=== PATIENT | female | born 1985 | race Caucasian/White ===

== ENCOUNTER 2017-11-27 18:09 | Emergency (ER) | payer BC, OTHER ==
[2017-11-27 18:51] VITALS: BP 118/82
[2017-11-27] MEDS ORDERED: Meclizine TAB* 12.5 MG PO ONE (19:11)
[2017-11-27] MEDS ORDERED: Ondansetron ODT TAB* 4 MG PO ONE (19:11)
--- NOTE | 2017-11-27 19:22 | UC ---
Gina Pete Julia, scribed for Naveed Zuleta MD on 11/27/17 at 1910 . Dizzy HPI HPI Summary: This patient is a 32 year old F presenting to [facility] accompanied by her mother with a chief complaint of spinning dizziness for past four days. Patient reports nausea, decreased appetite, headache, vomiting, post nasal drip, and heaviness in extremities. Patient denies fever, cough, ear or sinus pain, vision changes, diarrhea, and facial numbness. The patient rates the dizziness 8 /10 in severity. Symptoms aggravated by changing position, closing eyes and stagnant gaze. She states she has to walker slower secondary to dizziness. Patient is currently nursing. She states she had 2 panic attacks on Monday. - History Of Current Complaint Chief Complaint: UCDizziness Stated Complaint: NAUSEA, DIZZINESS Hx Obtained From: Patient Hx Last Menstrual Period: 11/23/17 ?: No Onset/Duration: Lasting Days Timing: Constant Pain Intensity: 8 Pain Scale Used: 0-10 Numeric Character: Room Spinning Aggravating Factor(s): Supine To Erect - closing eyes and stagnant gaze Associated Signs And Symptoms: Positive: Nausea, Vomiting, Decreased Oral Intake - Allergies/Home Medications Allergies/Adverse Reactions: Allergies Allergy/AdvReac Type Severity Reaction Status Date / Time No Known Allergies Allergy Verified 11/27/17 18:41 Home Medications: Home Medications Iron 18 mg PO DAILY 11/27/17 [History Confirmed 11/27/17] PMH/Surg Hx/FS Hx/Imm Hx - Additional Past Medical History Additional PMH: History of panic attacks with no formal diagnosis of anxiety. Pt is also has hx of anemia. - Surgical History Surgical History: Yes Surgery Procedure, Year, and Place: C- section 2008 - Family History Known Family History: Negative: Cardiac Disease, Diabetes - Social History Alcohol Use: Occasionally Substance Use Type: None Smoking Status (MU): Never Smoked Tobacco Have You Smoked in the Last Year: No - Immunization History Most Recent Influenza Vaccination: fall 2013 Most Recent Tetanus Shot: 06/11/2015 Most Recent Pneumonia Vaccination: never Review of Systems Constitutional: Negative - fever ENT: Negative - ear or sinus pain, Other - post nasal drip Gastrointestinal: Vomiting, Diarrhea - negative, Nausea - with decreased appetite Neurological: Negative - vision changes or facial numbness All Other Systems Reviewed And Are Negative: Yes Physical Exam Triage Information Reviewed: Yes Vital Signs: Initial Vital Signs Temp 98.8 F 11/27/17 18:43 Pulse 95 11/27/17 18:43 Resp 18 11/27/17 18:43 BP 118/82 11/27/17 18:43 Pulse Ox 99 11/27/17 18:43 Vital Signs Reviewed: Yes - Additional Comments Appearance: Well-appearing, Well-nourished Skin: Warm ENT: bulging left TM Respiratory: Clear to auscultation Cardiovascular: Normal S1, S2. No murmurs. Normal distal pulses in tibial and radial bilaterally. Abdomen: Soft, nontender, no masses Musculoskeletal: Normal, Strength/ROM Intact Neurological: Normal, A&Ox3, cranial nerves 2-12 intact, normal coordination, normal gait Psychiatric: Normal General: No acute distress Dizzy Course/Dx - Course Course Of Treatment: feels better here in ED, instructed to fu with pmd. no focal neuro def, pt and family agrees to and undertsnads dc instructions. - Differential Dx/Diagnosis Provider Diagnoses: dizziness Discharge - Discharge Plan Condition: Stable Disposition: HOME Prescriptions: Meclizine TAB* [Antivert 12.5 TAB*] 25 mg PO BID PRN #12 tab PRN Reason: Dizziness Ondansetron TAB* [Zofran 4 MG Tab*] 4 mg PO BID PRN #12 tab PRN Reason: Nausea Patient Education Materials: Benign Paroxysmal Positional Vertigo (ED) Referrals: Marcela Wu MD [Primary Care Provider] - Additional Instructions: PLEASE TAKE MEDICATIONS DIRECTED PLEASE KEEP YOURSELF WELL HYDRATED WITH SMALL AMOUNTS OF FLUID MORE FREQUENTLY THROUGHOUT THE DAY PLEASE SEEK MEDICAL ATTENTION IMMEDIATELY IF YOU HAVE ANY WORSENING OR CONCERNING SYMPTOMS PLEASE MAKE AN APPOINTMENT TO BE SEEN BY YOUR PRIMARY CARE DOCTOR WITHIN 1 WEEK The documentation as recorded by the Gina garcia Julia accurately reflects the service I personally performed and the decisions made by me, Naveed Zuleta MD.
== END 2017-11-27 19:28 | disposition home or self-care (01) ==
LOC: UCEAST 18:09
DX: R42 Dizziness and giddiness (principal); R11.2 Nausea with vomiting, unspecified; R51 Headache
CPT/HCPCS: 99212; A9270-GY; G0463

== ENCOUNTER 2017-12-14 17:58 | Emergency (ER) | payer BC | END 2017-12-14 18:35 | disposition left against medical advice (07) | LOC: UCEAST 17:58 | DX: Z77.29 Contact with and (suspected) exposure to other hazardous substances (principal); Z53.21 Procedure and treatment not carried out due to patient leaving prior to being seen by health care provider ==

== ENCOUNTER 2017-12-14 18:29 | Emergency (ER) | payer BC ==
--- NOTE | 2017-12-14 20:07 | ED ---
Headache - HPI Summary HPI Summary: 32F presents with possible carbon monoxide poisoning. She states the CO detector went off in her house today. She states she was tested by the fire department and it was little elevated. She states it has been 3 hours since exposure. She uses a fireplace which they are transferring over to a different one tomorrow. She has a place to stay tonight. She states she had a headache and some lightheadedness that has resolved since then. She has no medical conditions. - History Of Current Complaint Chief Complaint: EDGeneral Stated Complaint: POSS CO POISONING Time Seen by Provider: 12/14/17 19:05 Hx Last Menstrual Period: 11/23/17 - Allergies/Home Medications Allergies/Adverse Reactions: Allergies Allergy/AdvReac Type Severity Reaction Status Date / Time No Known Allergies Allergy Verified 11/27/17 18:41 PMH/Surg Hx/FS Hx/Imm Hx Endocrine/Hematology History: Denies: Hx Anticoagulant Therapy Cardiovascular History: Denies: Hx Hypertension - Surgical History Surgery Procedure, Year, and Place: C- section 2009 Infectious Disease History: No Infectious Disease History: Denies: Traveled Outside the [place] in Last 30 Days - Family History Known Family History: Positive: Respiratory Disease Negative: Cardiac Disease, Diabetes - Social History Alcohol Use: Occasionally Substance Use Type: Reports: None Smoking Status (MU): Never Smoked Tobacco Have You Smoked in the Last Year: No Review of Systems Negative: Fever Negative: Chest Pain Positive: Other - co exposure. Negative: Shortness Of Breath Positive: Headache All Other Systems Reviewed And Are Negative: Yes Physical Exam Triage Information Reviewed: Yes Vital Signs On Initial Exam: Initial Vitals Temp Pulse Resp BP Pulse Ox 97.7 F 85 17 120/70 99 12/14/17 18:57 12/14/17 18:57 12/14/17 18:57 12/14/17 18:57 12/14/17 18:57 Vital Signs Reviewed: Yes Appearance: Positive: Well-Appearing Skin: Positive: Warm, Dry Head/Face: Positive: Normal Head/Face Inspection Eyes: Positive: Normal, Conjunctiva Clear Respiratory/Lung Sounds: Positive: Clear to Auscultation, Breath Sounds Present Cardiovascular: Positive: Normal, RRR Abdomen Description: Positive: Nontender, Soft Bowel Sounds: Positive: Present Musculoskeletal: Positive: Normal Neurological: Positive: Normal Psychiatric: Positive: Normal Diagnostics - Vital Signs Vital Signs Temp Pulse Resp BP Pulse Ox 02/22/18 18:57 97.7 F 85 17 120/70 99 - Laboratory Lab Results: Lab Results 12/14/17 Range/Units 19:50 Carbon Monoxide Screen < 4 (<4.0) % Lab Statement: Any lab studies that have been ordered have been reviewed, and results considered in the medical decision making process. Headache Course/Dx - Course Course Of Treatment: 32F presents with possible carbon monoxide poisoning. She states the CO detector went off in her house today. She states she was tested by the fire department and it was little elevated. She states it has been 3 hours since exposure. She uses a fireplace which they are transferring over to a different one tomorrow. She has a place to stay tonight. She states she had a headache and some lightheadedness that has resolved since then. She has no medical conditions. On exam lungs clear to auscultation. CO level less than 4. No treatment needed at this time. Patient understands and agrees with plan. - Diagnoses Differential Diagnosis/HQI/PQRI: Other - co exposure Provider Diagnoses: Carbon monoxide exposure Discharge - Discharge Plan Condition: Good Disposition: HOME Patient Education Materials: Carbon Monoxide Poisoning (ED) Referrals: Marcela Wu MD [Primary Care Provider] - Additional Instructions: Return to ED if develop any new or worsening symptoms
[2017-12-14 20:16] VITALS: BP 120/72
== END 2017-12-14 20:14 | disposition home or self-care (01) ==
LOC: ED 18:29
DX: T58.8X1A Toxic effect of carbon monoxide from other source, accidental (unintentional), initial encounter (principal)
CPT/HCPCS: 36415; 82375; 99282

== ENCOUNTER 2019-02-04 11:59 | Inpatient (IN) | payer BC ==
[2019-02-04] MEDS ORDERED: Buffered Lidocaine 1% SYRIN* 1 ML/SYRINGE INTRADERM ONE (12:32)
[2019-02-04] MEDS ORDERED: Lactated Ringers 1000 ML Bag* 1,000 ML IV ONE ×2 (12:32→18:45)
--- NOTE | 2019-02-04 12:42 | HP ---
General Information - Reason for Visit 33 at 41 weeks for induction/ augmentation of labor. pt with some contractions currently q q6 minutes gfm - General Information Maternal Age: 33 Grav: 3 Para: 2 SAB: 0 IEA: 0 Estimated Due Date: 01/26/19 Determined By: Early Ultrasound Maternal Blood Type and Rh: A Positive - Results this Serology/RPR Result: Non-Reactive Rubella Result: Immune HBsAg Result: Negative HIV Result: Negative GBS Culture Result: Negative Past Medical History Delivery History: Hx C/Section, Hx Uncomplicated Vaginal Delivery Pertinent Past Medical History: See Records Pertinent Past Surgical History: See Records Pertinent Family History: See Records Review of Systems Constitutional: Comfortable Gastrointestinal: No Nausea/Vomiting Genitourinary: No Bleeding, No Leaking Fluid Musculoskeletal: Contractions Movement: Normal Exam Allergies/Adverse Reactions: Allergies No Known Allergies Allergy (Verified 11/27/17 18:41) - Measurements Height: 5 ft 3 in Weight: 190 lb Weight in lbs: [phone] Body Mass Index (BMI): 33.6 Pre- Weight: 150 lb Weight Gained This : 40 lbs and 0 ozs - Exam Breast: Breast Exam Deferred Extremities: Edema - +1 Heart: Normal Rhythm/Heart Sounds HEENT: No Significant Findings Reflexes: DTR 2+ Targeted Exam Findings Cervical Exam: 2cm Effacement: 70% Station: -2 Presenting Part: Vertex Membrane Status: AROM EFM Findings - External Monitor Findings Baseline Heart Rate: 135 External Monitor Findings: Accelerations Present, Variability Moderate Contractions: Regular, Mild, 45-90 Seconds Assessment/Plan - Assessment previous and would lie to / 41 + weeks - Obstetrical Risk Factors Obstetrical Risk Factors: Previous C/Section in Labor - Plan Plan: Admit - Anticipate Vaginal Delivery - augment with pitocin
[2019-02-04] MEDS ORDERED: Lactated Ringers 1000 ML Bag* 1,000 ML IV SCH ×3 (13:00→22:00)
[2019-02-04] MEDS ORDERED: Oxytocin in LR* 20 UNITS/1,000 ML BAG IVPB SCH ×2 (13:00→22:00)
[2019-02-04 13:02] LABS: ABS Basophils 0 10^3/ul (0-0.2); ABS Eosinophils 0.1 10^3/ul (0-0.6); ABS Lymphocytes 1.8 10^3/ul (1.0-4.8); ABS Monocytes 0.5 10^3/ul (0-0.8); ABS Neutrophils 7.7 10^3/ul (1.5-7.7); ABS Nucleated RBC 0 10^3/ul; Eosinophil % 1.1 %; Hematocrit 34 % (33-41); Hemoglobin 11.4 g/dL (12.0-16.0); Lymphocyte % 17.7 %; Mean Corpuscular HGB Conc 34 g/dL (31-36); Mean Corpuscular Hemoglobin 29 pg (27-31); Mean Corpuscular Volume 87 fL (80-97); Mean Platelet Volume 6.8 fL (7.4-10.4); Nucleated Red Blood Cells % 0.1; Platelet Count 238 10^3/uL (150-450); Red Blood Count 3.89 10^6 /uL (3.70-4.87); Red Cell Distribution Width 14 % (10.5-15); White Blood Count 10.2 10^3/uL (3.5-10.8)
[2019-02-04] MEDS ORDERED: OBEPIDURAL* 250 ML EPIDURAL ONE (18:16)
[2019-02-04] MEDS ORDERED: Bupivacaine 0.25% SDV PF* 10 ML VIAL INJ ONE (18:21)
[2019-02-04] MEDS ORDERED: Phenylephrine 40 MCG/ML SYRINGE IV PUSH PRN (18:45)
[2019-02-04] MEDS ORDERED: Famotidine TAB* 20 MG PO PRN (18:45)
[2019-02-04] MEDS ORDERED: Sodium Citrate/Citric Acid* 15 ML UDC PO PRN (18:45)
[2019-02-04] MEDS ORDERED: EPHEDrine (Pressors)* 50 MG/ML VIAL IV PUSH PRN (18:45)
[2019-02-04] MEDS ORDERED: OBEPIDURAL* 250 ML EPIDURAL SCH (19:00)
[2019-02-04] MEDS ORDERED: Dibucaine 1% 28.35 GM TUBE PR PRN (21:58)
[2019-02-04] MEDS ORDERED: Witch Hazel PAD* JAR TOPICAL PRN (21:58)
[2019-02-04] MEDS ORDERED: Glycerin ADULT SUPP PR PRN (21:58)
[2019-02-04] MEDS ORDERED: Acetaminophen TAB* 325 MG PO PRN (21:58)
--- NOTE | 2019-02-05 03:27 | PROCNOTE ---
[facility] OB: Delivery Note - Delivery A Date of : 02/04/19 Time of : 21:40 Weight at : 7 lb 4 oz Score 1 Minute: 9 Score 5 Minutes: 10 Gestational Age in Weeks and Days at Delivery: 41 Weeks and 2 Days Delivery Method: Spontaneous Vaginal Labor: Spontaneous Did Patient attempt ?: Yes, Successful Amniotic Fluid: Clear Estimated Blood Loss: 300 Anesthesia/Analgesia: CEI for Labor Delivered By: Jose Eilse - Nursery Level of Nursery: Regular/Bedside - Perineum Perineal Injury: None/Intact - Events Delivery Events of Note: Pitocin During Labor, Supplemental O2 to Mother, Internal Scalp EKG Delivery Events of Note Comment: pt with a rim with varaible deceleration after contractions. pt pushed with no descent initially. fhr down into 70's and 80's. pt place on left side and pushed well with rapid descent and delivery.
[2019-02-05 07:03] LABS: ABS Basophils 0 10^3/ul (0-0.2); ABS Eosinophils 0.1 10^3/ul (0-0.6); ABS Lymphocytes 1.8 10^3/ul (1.0-4.8); ABS Monocytes 0.7 10^3/ul (0-0.8); ABS Neutrophils 10.2 10^3/ul (1.5-7.7); ABS Nucleated RBC 0 10^3/ul; Eosinophil % 0.5 %; Hematocrit 30 % (33-41); Hemoglobin 9.9 g/dL (12.0-16.0); Lymphocyte % 14.3 %; Mean Corpuscular HGB Conc 34 g/dL (31-36); Mean Corpuscular Hemoglobin 29 pg (27-31); Mean Corpuscular Volume 86 fL (80-97); Mean Platelet Volume 6.8 fL (7.4-10.4); Nucleated Red Blood Cells % 0; Platelet Count 225 10^3/uL (150-450); Red Blood Count 3.43 10^6 /uL (3.70-4.87); Red Cell Distribution Width 14 % (10.5-15); White Blood Count 12.9 10^3/uL (3.5-10.8)
[2019-02-05] MEDS ORDERED: Simethicone TAB* 80 MG TAB.CHEW PO SCH (08:30)
[2019-02-05] MEDS: Docusate CAP* 100 MG PO SCH ×3 (08:38→21:10)
[2019-02-05] MEDS: Ferrous Gluconate TAB* 324 MG TAB PO SCH ×2 (08:38→21:10)
[2019-02-05] MEDS: Ibuprofen TAB* 600 MG PO PRN (17:37)
[2019-02-06 08:31] VITALS: BP 124/78
[2019-02-06] MEDS: Ferrous Gluconate TAB* 324 MG TAB PO SCH (09:09)
[2019-02-06] MEDS: Ibuprofen TAB* 600 MG PO PRN (09:10)
[2019-02-06] MEDS: Docusate CAP* 100 MG PO SCH (10:47)
== END 2019-02-06 10:20 | disposition home or self-care (01) | DRG 560 ==
LOC: MCHOBOUT 11:59 → MCHOB 12:34
PROVIDERS: ADMIT Obstetrics & Gynecology; ATTEND Obstetrics & Gynecology
PROC: 10E0XZZ Delivery of Products of Conception, External Approach (ICD-10-PCS; principal; 2019-02-04)
PROC: 10907ZC Drainage of Amniotic Fluid, Therapeutic from Products of Conception, Via Natural or Artificial Opening (ICD-10-PCS; 2019-02-04)
PROC: 4A1HXCZ Monitoring of Products of Conception, Cardiac Rate, External Approach (ICD-10-PCS; 2019-02-04)
DX: O48.0 Post-term pregnancy (principal); Z37.0 Single live birth; Z3A.41 41 weeks gestation of pregnancy; O34.211 Maternal care for low transverse scar from previous cesarean delivery; O69.3XX0 Labor and delivery complicated by short cord, not applicable or unspecified; O76 Abnormality in fetal heart rate and rhythm complicating labor and delivery; O90.81 Anemia of the puerperium
CPT/HCPCS: 36415; 85025; 86850; 86900; 86901; A9270-GY; J3490